=== PATIENT | male | born 1960 | race African-American/Black ===

== ENCOUNTER 2016-12-16 11:45 | Emergency (ER) | payer MEDICARE, OTHER ==
--- NOTE | 2016-12-16 12:19 | ED ---
General Adult HPI - General Chief complaint: Fall Stated complaint: Fall [facility] Time Seen by Provider: 12/16/16 12:03 Source: patient, RN notes reviewed Mode of arrival: ambulatory Limitations: no limitations - History of Present Illness Initial comments: Patient 56-year-old male who presents emergency room today with chief complaint of a fall that occurred yesterday at work. 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 Admits that he's had pain to the left foot and ankle. Admits to pain to the left elbow and some swelling to the medial aspect admits that he's had some numbness sensation in the left arm shooting up. Patient also admits to sore throat. States he noticed that he asked for this. States for somewhat better today but still feels sore and swollen. States hurts when he swallows. Denies any other complaints or symptoms. Denies any loss conscious. Denies any headache. Patient denies any recent fever, chills, shortness of breath, chest pain, back pain, abdominal pain, nausea or vomiting, dysuria or hematuria , constipation or diarrhea, headaches or visual changes, or any other complaints. - Related Data Home Medications Medication Instructions Recorded Confirmed Aspirin EC [Ecotrin Low Dose] 81 mg PO DAILY 12/16/16 12/16/16 Hydrocodone/Acetaminophen [[place] 1 tab PO TID PRN 12/16/16 12/16/16 10-325] Indomethacin [Indocin] 50 mg PO BID 12/16/16 12/16/16 Metoprolol Succinate (ER) [Toprol 25 mg PO DAILY 12/16/16 12/16/16 Xl] Previous Rx's Medication Instructions Recorded Ibuprofen [Motrin] 600 mg PO Q6HR PRN #40 day 12/16/16 Allergies Allergy/AdvReac Type Severity Reaction Status Date / Time No Known Allergies Allergy Verified 12/16/16 12:23 Review of Systems ROS Statement: Those systems with pertinent positive or pertinent negative responses have been documented in the HPI. ROS Other: All systems not noted in ROS Statement are negative. Past Medical History Additional Past Medical History / Comment(s): Throat infection on 09/07 with abx. ; gout History of Any Multi-Drug Resistant Organisms: None Reported Past Surgical History: Orthopedic Surgery Additional Past Surgical History / Comment(s): Rt hand Past Psychological History: No Psychological Hx Reported Smoking Status: Never smoker Past Alcohol Use History: None Reported Past Drug Use History: None Reported General Exam - General Exam Comments Initial Comments: General: The patient is awake and alert, in no distress, and does not appear acutely ill. Eye: Pupils are equal, round and reactive to light, extra-ocular movements are intact. No nystagmus. There is normal conjunctiva bilaterally. No signs of icterus. Ears, nose, mouth and throat: There are moist mucous membranes and no oral lesions. Neck: The neck is supple, there is no tenderness or JVD. Cardiovascular: There is a regular rate and rhythm. No murmur, rub or gallop is appreciated. Respiratory: Lungs are clear to auscultation, respirations are non-labored, breath sounds are equal. No wheezes, stridor, rales, or rhonchi. Musculoskeletal: No appearance of the left foot. Mild tenderness over the medial malleolus and proximal first and second metatarsals. Mild tenderness to the medial aspect of the left elbow. No tenderness to the left shoulder, left wrist or hand. No tenderness to left knee or left hip. Patient shows full range of motion all areas. Strength 5/5. Sensation intact. Pulses equal bilaterally 2+. Neurological: A&O x 3. CN II-XII intact, There are no obvious motor or sensory deficits. Coordination appears grossly intact. Speech is normal. Skin: Skin is warm and dry and no rashes or lesions are noted. Psychiatric: Cooperative, appropriate mood & affect, normal judgment. Limitations: no limitations Course Vital Signs 12/16/16 11:57 Temperature 100.3 F H Pulse Rate 92 Respiratory 18 Rate Blood Pressure 148/92 O2 Sat by Pulse 98 Oximetry Medical Decision Making - Medical Decision Making Patient's x-rays reviewed and are negative for any acute abnormalities. Results were discussed with the patient. Patient's strep test is negative. Discussed with patient most likely viral illness causing a sore throat. Advised patient use Tylenol Motrin and elevate the ankle and elbow for swelling. Advised to follow-up family doctor return here to the emergency room if any symptoms increase or worsen or for any concerns. - Lab Data Lab Results 12/16/16 Range/Units 13:03 Group A Strep Rapid Negative (Negative) Disposition Clinical Impression: Fall, Ankle sprain, Elbow contusion, Pharyngitis Disposition: HOME SELF-CARE Condition: Good Instructions: Pharyngitis (ED), Ankle Sprain (ED) Additional Instructions: Please use Tylenol ibuprofen as needed. Please ice and elevate affected areas as discussed. Follow family doctor over the next 3-5 days symptoms are unimproved. Please return to emergency room if the symptoms increase or worsen or for any other concerns. Prescriptions: Ibuprofen [Motrin] 600 mg PO Q6HR PRN #40 day PRN Reason: Pain Time of Disposition: 13:35
--- NOTE | 2016-12-16 13:07 | XR ---
EXAMINATION TYPE: XR lumbar spine 2 or 3V DATE OF EXAM: 12/16/2016 12:53 PM COMPARISON: NONE HISTORY: Fall. TECHNIQUE: 2 views of the lumbar spine were obtained. FINDINGS: Lumbar vertebral body heights are maintained as well as alignment. Facet arthropathy is see n at L4-L5 and L5-S1. No fracture or dislocation is evident. No radiopaque calculi are seen within th e upper abdomen or visualized portions of the pelvis. Visualized bowel gas is unremarkable. IMPRESSION: No fracture, dislocation or malalignment. Mild degenerative changes of the lumbosacral sp ine.
--- NOTE | 2016-12-16 13:08 | XR ---
EXAMINATION TYPE: XR ankle complete LT DATE OF EXAM: 12/16/2016 12:53 PM COMPARISON: NONE HISTORY: Fall with subsequent pain TECHNIQUE: 3 views of the left ankle were obtained radiographically. FINDINGS: There is maintained ankle joint alignment. No evidence of acute fracture or dislocation. Ma rginal osteophytes are seen of the medial malleolus. Super calcaneal heel spur is also noted. Mild de generative changes are seen at the talonavicular joint. No evidence of joint effusion or soft tissue swelling. No radiopaque foreign bodies. IMPRESSION: No evidence of fracture or dislocation. Mild degenerative changes of the talonavicular sean int.
--- NOTE | 2016-12-16 13:09 | XR ---
EXAMINATION TYPE: XR elbow complete LT DATE OF EXAM ORDERED: 12/16/2016 12:53 PM HISTORY: Pain. COMPARISON: None. FINDINGS: Nonstandard projections were performed. There are degenerative changes within the elbow joint within the radial capitellum joint and the ulna r trochlear joint. No definite fracture, dislocation or elbow joint effusion is seen. IMPRESSION: LIMITED STUDY DEMONSTRATING NO ACUTE OSSEOUS LESION.
--- NOTE | 2016-12-16 13:12 | XR ---
EXAMINATION TYPE: XR foot complete LT DATE OF EXAM ORDERED: 12/16/2016 12:53 PM HISTORY: Pain. COMPARISON: Previous study dated 09/24/2014. FINDINGS: No fracture, dislocation or other acute osseous lesion is seen. There are mild degenerativ e changes in the first MTP joint. There is a plantar calcaneal spur. IMPRESSION: 1. NO ACUTE OSSEOUS LESION. 2. MILD DEGENERATIVE CHANGE.
[2016-12-16] MEDS ORDERED: KETOROLAC 60 MG/2 ML VIAL IM STA (13:36)
[2016-12-16 14:05] VITALS: BP 143/59; PULSE 84; RESP 16; TEMP 99.9
== END 2016-12-16 14:05 | disposition home or self-care (01) ==
LOC: EC 11:45
DX: S93.402A Sprain of unspecified ligament of left ankle, initial encounter (principal); S50.02XA Contusion of left elbow, initial encounter; J02.9 Acute pharyngitis, unspecified; M10.9 Gout, unspecified; Z79.82 Long term (current) use of aspirin; Z79.899 Other long term (current) drug therapy; W01.0XXA Fall on same level from slipping, tripping and stumbling without subsequent striking against object, initial encounter; Y92.69 Other specified industrial and construction area as the place of occurrence of the external cause; Y99.0 Civilian activity done for income or pay
CPT/HCPCS: 99283; 96372; 87081; 87430; 72100; 73080; 73610; 73630; J1885

== ENCOUNTER 2019-12-11 18:26 | Emergency (ER) | payer BC, MEDICARE ==
[2019-12-11 18:32] VITALS: TEMP 98.8
[2019-12-11] MEDS ORDERED: SODIUM CHLORIDE 0.9% 1,000 ML IV STA (19:01)
--- NOTE | 2019-12-11 19:05 | ED ---
General Adult HPI - General Chief complaint: Neuro Symptoms/Deficit Stated complaint: finger & toe numbness/weakness Time Seen by Provider: 12/11/19 18:43 Source: patient, RN notes reviewed Mode of arrival: ambulatory Limitations: no limitations - History of Present Illness Initial comments: Patient is a pleasant 59-year-old male presenting to the emergency Department with fatigue and general weakness. Onset of symptoms was a couple of days ago. Patient has paresthesias of his finger and toe tips. Patient feels easily fatigued and weak all over when he tries to perform activities. No muscle weakness at rest. No history of similar symptoms previously. No fevers. No chest pain or dyspnea. No neck pain. No GI symptoms. - Related Data Home Medications Medication Instructions Recorded Confirmed Aspirin EC [Ecotrin Low Dose] 81 mg PO DAILY 12/16/16 06/12/17 Hydrocodone/Acetaminophen [[place] 1 tab PO TID PRN 12/16/16 06/12/17 10-325] Indomethacin [Indocin] 50 mg PO BID 12/16/16 06/12/17 Metoprolol Succinate (ER) [Toprol 25 mg PO DAILY 12/16/16 06/12/17 Xl] Previous Rx's Medication Instructions Recorded Ibuprofen [Motrin] 600 mg PO Q6HR PRN #40 day 12/16/16 amLODIPine [Norvasc] 5 mg PO DAILY #14 tab 12/11/19 Allergies Allergy/AdvReac Type Severity Reaction Status Date / Time No Known Allergies Allergy Verified 12/11/19 18:32 Review of Systems ROS Statement: Those systems with pertinent positive or pertinent negative responses have been documented in the HPI. ROS Other: All systems not noted in ROS Statement are negative. Constitutional: Denies: fever Eyes: Denies: eye pain ENT: Denies: ear pain Respiratory: Denies: cough, dyspnea Cardiovascular: Denies: chest pain Endocrine: Reports: fatigue Gastrointestinal: Denies: abdominal pain Genitourinary: Denies: dysuria Musculoskeletal: Denies: back pain Skin: Denies: rash Neurological: Reports: as per HPI. Denies: headache, confusion Past Medical History Past Medical History: Hypertension Additional Past Medical History / Comment(s): gout History of Any Multi-Drug Resistant Organisms: None Reported Past Surgical History: Orthopedic Surgery Additional Past Surgical History / Comment(s): Rt hand Past Anesthesia/Blood Transfusion Reactions: No Reported Reaction Past Psychological History: No Psychological Hx Reported Smoking Status: Never smoker Past Alcohol Use History: None Reported Past Drug Use History: None Reported - Past Family History Mother Family Medical History: No Reported History General Exam Limitations: no limitations General appearance: alert, in no apparent distress Head exam: Present: normocephalic Eye exam: Present: normal appearance, PERRL, EOMI. Absent: nystagmus ENT exam: Present: normal oropharynx Neck exam: Present: normal inspection, full ROM. Absent: tenderness, meningismus Respiratory exam: Present: normal lung sounds bilaterally Cardiovascular Exam: Present: regular rate, normal rhythm GI/Abdominal exam: Present: soft. Absent: tenderness Extremities exam: Present: normal inspection, full ROM. Absent: tenderness Neurological exam: Present: alert, oriented X3, CN II-XII intact. Absent: motor sensory deficit Expanded Neurological exam: Present: protecting the airway Speech: Present: fluid speech Cranial nerves: EOM's Intact: Normal, Facial Sensation: Normal Sensory exam: Upper Extremity Light Touch: Normal, Lower Extremity Light Touch: Normal Motor strength exam: RUE: 5, LUE: 5, RLE: 5, LLE: 5 Eye Response: (4) open spontaneously Motor Response: (6) obeys commands Verbal Response: (5) oriented Psychiatric exam: Present: normal affect, normal mood Skin exam: Present: normal color Course Vital Signs 12/11/19 12/11/19 18:30 19:05 Temperature 98.8 F Pulse Rate 80 74 Respiratory 18 18 Rate Blood Pressure 160/113 154/103 O2 Sat by Pulse 99 100 Oximetry EKG Findings - EKG Comments: EKG Findings:: Normal sinus rhythm 78. NE 174. QRS 84. QT 370. QTc 421. Normal axis. LVH criteria. Lateral T wave inversion. Medical Decision Making - Medical Decision Making Patient reevaluated and resting comfortably in bed, symptom-free. Blood pressure remains high. Patient is receptive to receiving a dose of blood pressure medication however refuses to stay to watch affect of it. Patient is advised that he should states her lower blood pressure before discharge. Patient refuses this. Patient is receptive to follow-up with her primary care physician and prescription for blood pressure medication. Patient states he is able to perform his activities of daily living despite fatigue and does not feel he needs to be hospitalized. Patient is made aware that he may need to follow- up with specialist including neurologist or rheumatology as well. - Lab Data Result diagrams: 12/11/19 19:03 12/11/19 19:03 Lab Results 12/11/19 12/11/19 12/11/19 Range/Units 19:03 19:03 19:03 WBC 7.6 (3.8-10.6) k/uL RBC 4.31 (4.30-5.90) m/uL Hgb 12.9 L (13.0-17.5) gm/dL Hct 37.8 L (39.0-53.0) % MCV 87.8 (80.0-100.0) fL MCH 29.8 (25.0-35.0) pg MCHC 34.0 (31.0-37.0) g/dL RDW 14.7 (11.5-15.5) % Plt Count 239 (150-450) k/uL Neutrophils % 57 % Lymphocytes % 32 % Monocytes % 6 % Eosinophils % 3 % Basophils % 1 % Neutrophils # 4.3 (1.3-7.7) k/uL Lymphocytes # 2.4 (1.0-4.8) k/uL Monocytes # 0.4 (0-1.0) k/uL Eosinophils # 0.2 (0-0.7) k/uL Basophils # 0.1 (0-0.2) k/uL Sodium 141 (137-145) mmol/L Potassium 4.1 (3.5-5.1) mmol/L Chloride 109 H (98-107) mmol/L Carbon Dioxide 24 (22-30) mmol/L Anion Gap 8 mmol/L BUN 13 (9-20) mg/dL Creatinine 1.04 (0.66-1.25) mg/dL Est GFR (CKD-EPI)AfAm >90 (>60 ml/min/1.73 sqM) Est GFR (CKD-EPI)NonAf 79 (>60 ml/min/1.73 sqM) Glucose 99 (74-99) mg/dL Calcium 9.0 (8.4-10.2) mg/dL Magnesium 2.0 (1.6-2.3) mg/dL Total Bilirubin 0.4 (0.2-1.3) mg/dL AST 24 (17-59) U/L ALT 26 (4-49) U/L Alkaline Phosphatase 64 (38-126) U/L Creatine Kinase 211 H (55-170) U/L Troponin I <0.012 (0.000-0.034) ng/mL Total Protein 7.5 (6.3-8.2) g/dL Albumin 4.2 (3.5-5.0) g/dL Urine Color Urine Appearance (Clear) Urine pH (5.0-8.0) Ur Specific Mcdaniels (1.001-1.035) Urine Protein (Negative) Urine Glucose (UA) (Negative) Urine Ketones (Negative) Urine Blood (Negative) Urine Nitrite (Negative) Urine Bilirubin (Negative) Urine Urobilinogen (<2.0) mg/dL Ur Leukocyte Esterase (Negative) 12/11/19 Range/Units 19:05 WBC (3.8-10.6) k/uL RBC (4.30-5.90) m/uL Hgb (13.0-17.5) gm/dL Hct (39.0-53.0) % MCV (80.0-100.0) fL MCH (25.0-35.0) pg MCHC (31.0-37.0) g/dL RDW (11.5-15.5) % Plt Count (150-450) k/uL Neutrophils % % Lymphocytes % % Monocytes % % Eosinophils % % Basophils % % Neutrophils # (1.3-7.7) k/uL Lymphocytes # (1.0-4.8) k/uL Monocytes # (0-1.0) k/uL Eosinophils # (0-0.7) k/uL Basophils # (0-0.2) k/uL Sodium (137-145) mmol/L Potassium (3.5-5.1) mmol/L Chloride (98-107) mmol/L Carbon Dioxide (22-30) mmol/L Anion Gap mmol/L BUN (9-20) mg/dL Creatinine (0.66-1.25) mg/dL Est GFR (CKD-EPI)AfAm (>60 ml/min/1.73 sqM) Est GFR (CKD-EPI)NonAf (>60 ml/min/1.73 sqM) Glucose (74-99) mg/dL Calcium (8.4-10.2) mg/dL Magnesium (1.6-2.3) mg/dL Total Bilirubin (0.2-1.3) mg/dL AST (17-59) U/L ALT (4-49) U/L Alkaline Phosphatase (38-126) U/L Creatine Kinase (55-170) U/L Troponin I (0.000-0.034) ng/mL Total Protein (6.3-8.2) g/dL Albumin (3.5-5.0) g/dL Urine Color Light Yellow Urine Appearance Clear (Clear) Urine pH 7.0 (5.0-8.0) Ur Specific Mcdaniels 1.013 (1.001-1.035) Urine Protein Negative (Negative) Urine Glucose (UA) Negative (Negative) Urine Ketones Negative (Negative) Urine Blood Negative (Negative) Urine Nitrite Negative (Negative) Urine Bilirubin Negative (Negative) Urine Urobilinogen <2.0 (<2.0) mg/dL Ur Leukocyte Esterase Negative (Negative) - Radiology Data Radiology results: report reviewed (Computed tomography scan of the brain shows no acute hemorrhage.), image reviewed (Two-view chest x-ray shows minimal pulmonary congestion.) Disposition Clinical Impression: Fatigue, Hypertension, Paresthesias Disposition: HOME SELF-CARE Condition: Stable Instructions (If sedation given, give patient instructions): Hypertension (ED), Heart Healthy Diet (ED), Fatigue (ED), Paresthesia (ED) Additional Instructions: Please follow-up with primary care physician in the next couple days for reche ck, number provided. Return for increased weakness, difficulty breathing, change in mental status or confusion, worsening symptoms or any other concerns. Have primary care physician review chart from today and review blood pressure. Prescription sent to [facility] on [address] Prescriptions: amLODIPine [Norvasc] 5 mg PO DAILY #14 tab Is patient prescribed a controlled substance at d/c from ED?: No Referrals: Jerry Fischer MD [STAFF PHYSICIAN] - 1-2 days Time of Disposition: 20:24
[2019-12-11 19:15] LABS: Basophils # (A) 0.1 k/uL (0-0.2); Basophils % (A) 1 %; Eosinophils # (A) 0.2 k/uL (0-0.7); Eosinophils % (A) 3 %; HCT 37.8 % (39.0-53.0); HGB 12.9 gm/dL (13.0-17.5); Lymphocytes # (A) 2.4 k/uL (1.0-4.8); Lymphocytes % (A) 32 %; MCH 29.8 pg (25.0-35.0); MCV 87.8 fL (80.0-100.0); Monocytes # (A) 0.4 k/uL (0-1.0); Monocytes % (A) 6 %; Neutrophils # (A) 4.3 k/uL (1.3-7.7); Neutrophils % (A) 57 %; Platelet Count 239 k/uL (150-450); RBC 4.31 m/uL (4.30-5.90); RDW 14.7 % (11.5-15.5); WBC 7.6 k/uL (3.8-10.6)
[2019-12-11 19:29] LABS: ALT 26 U/L (4-49); AST 24 U/L (17-59); African American GFR (CKD) >90 (>60 ml/min/1.73 sqM); Albumin 4.2 g/dL (3.5-5.0); Alkaline Phosphatase 64 U/L (38-126); Anion Gap 8 mmol/L; Blood Urea Nitrogen 13 mg/dL (9-20); Carbon Dioxide 24 mmol/L (22-30); Chloride 109 mmol/L (98-107); Creatine Kinase 211 U/L (55-170); Glucose 99 mg/dL (74-99); Non-African American GFR(CKD) 79 (>60 ml/min/1.73 sqM); Potassium 4.1 mmol/L (3.5-5.1); Prothrombin Time 10.2 sec (9.0-12.0); Sodium 141 mmol/L (137-145); Total Bilirubin 0.4 mg/dL (0.2-1.3); Total Protein 7.5 g/dL (6.3-8.2)
[2019-12-11 19:31] LABS: Appearance,Urine Clear (Clear); Bilirubin,Urine Negative (Negative); Blood,Urine Negative (Negative); Color,Urine Light Yellow; Glucose,Urine (UA) Negative (Negative); Ketones,Urine Negative (Negative); Leukocyte Esterase,Urine Negative (Negative); Nitrite,Urine Negative (Negative); Protein,Urine Negative (Negative); Specific Gravity,Urine 1.013 (1.001-1.035); Urobilinogen,Urine <2.0 mg/dL (<2.0)
--- NOTE | 2019-12-11 20:01 | XR ---
EXAMINATION TYPE: XR chest 2V DATE OF EXAM: 12/11/2019 COMPARISON: NONE HISTORY: Altered mental status TECHNIQUE: Frontal and lateral views of the chest are obtained. FINDINGS: Cardiomediastinal silhouette is mildly enlarged. Minimal pulmonary vascular congestion thr oughout. No sizable pneumothorax or pleural effusion. No focal consolidation. No acute osseous abnorm ality seen. IMPRESSION: Minimal pulmonary vascular congestion and cardiomegaly. Consider congestive heart failur e.
--- NOTE | 2019-12-11 20:04 | CT ---
EXAMINATION TYPE: CT brain wo con DATE OF EXAM: 12/11/2019 COMPARISON: NONE HISTORY: right arm numbness. Neurologic deficits. CT DLP: 1098.4 mGycm. Automated Exposure Control for Dose Reduction was Utilized. TECHNIQUE: CT scan of the head is performed without contrast. FINDINGS: There is no acute intracranial hemorrhage, mass effect, or midline shift identified. The ventricles and sulci are within normal limits in size. Punctate dystrophic calcification of the righ t basal ganglia is seen on image 22. The globes are intact and the visualized sinuses are clear. IMPRESSION: No acute intracranial hemorrhage, mass effect, or midline shift is seen. Considering the patient's complain of right arm numbness and neurologic deficits MRI could be considered.
[2019-12-11] MEDS ORDERED: amLODIPine 5 MG TAB PO STA (20:20)
[2019-12-11 20:47] VITALS: BP 139/102; PULSE 81; RESP 20
== END 2019-12-11 20:58 | disposition home or self-care (01) ==
LOC: EC 18:26
DX: I10 Essential (primary) hypertension (principal); R20.2 Paresthesia of skin; R53.83 Other fatigue; M10.9 Gout, unspecified; Z79.899 Other long term (current) drug therapy; Z79.82 Long term (current) use of aspirin
CPT/HCPCS: 36415; 70450; 71046; 80053; 81003; 82550; 83735; 84484; 85025; 85610; 85730; 93005; 99285

== ENCOUNTER → 2020-01-22 | Outpatient (CLI) | payer BC, MEDICARE, OTHER ==
--- NOTE | 2020-01-22 09:30 | XR ---
EXAMINATION TYPE: XR lumbar spine 2 or 3V DATE OF EXAM: 01/22/2020 COMPARISON: 12/16/2016 HISTORY: Low back pain x2 months TECHNIQUE: Three-view lumbar spine FINDINGS: There 5 lumbar-type vertebral bodies. The pedicles are intact. Disc heights are preserved. Vertebral body heights are preserved. Alignment is normal. IMPRESSION: 1. Normal three-view lumbar spine
== END | disposition home or self-care (01) ==
LOC: RADXRMAIN 07:47
PROVIDERS: ATTEND Family Medicine
DX: M54.5 Low back pain (principal); R06.00 Dyspnea, unspecified
CPT/HCPCS: 72100

== ENCOUNTER → 2020-01-31 | Outpatient (CLI) | payer BC, MEDICARE | END | disposition home or self-care (01) | LOC: RADNMMAIN 09:05 | PROVIDERS: ATTEND Family Medicine | DX: Z53.9 Procedure and treatment not carried out, unspecified reason (principal) ==